=== PATIENT | female | born 1940 | race Caucasian/White ===

== ENCOUNTER 2021-05-18 11:59 | Day surgery (SDC) | payer MEDICARE ==
[2021-05-15 15:56] LABS: BASOPHILS % (AUTO) 0.4 % (0-1); EOSINOPHILS # (AUTO) 0.1 X10'3 (0-0.9); EOSINOPHILS % (AUTO) 0.9 % (0-6); LYMPHOCYTES # (AUTO) 1.8 X10'3 (1.1-4.8); LYMPHOCYTES % (AUTO) 14.3 % (21-51); MEAN CORPUSCULAR HEMOGLOBIN 28.4 PG (27.0-31.0); MEAN CORPUSCULAR HGB CONC 33.1 g/dL (33.0-36.5); MEAN CORPUSCULAR VOLUME 85.7 FL (78-98); MONOCYTES # (AUTO) 0.9 X10'3 (0-0.9); MONOCYTES % (AUTO) 7.2 % (2-12); NEUTROPHILS # (AUTO) 9.8 X10'3 (1.8-7.7); NEUTROPHILS % (AUTO) 77.2 % (42-75); PRE OP HEMOGLOBIN 14.6 g/dL (12.0-16.0); PRE OP PLATELET COUNT 163 X10'3 (140-440); RED BLOOD COUNT 5.13 X10'6 (4.20-5.60); RED CELL DISTRIBUTION WIDTH 14.2 % (11.5-14.5)
[2021-05-15 16:19] LABS: ALBUMIN 3.1 G/DL (3.4-5.0); ALBUMIN/GLOBULIN RATIO 0.7 (1.1-1.5); ALKALINE PHOSPHATASE 72 IU/L (46-116); BLOOD UREA NITROGEN 22 MG/DL (7-18); BUN/CREATININE RATIO 18.6 (6.6-38.0); CALCIUM 9.1 MG/DL (8.5-10.1); CHLORIDE 106 MMOL/L (99-107); CREATININE 1.18 MG/DL (0.40-0.90); PRE OP ALT 19 U/L (30-65); PRE OP ANION GAP 10 (8-16); PRE OP AST 16 U/L (10-37); PRE OP BILIRUB, TOTAL 0.7 MG/DL (0.0-1.0); PRE OP GLUCOSE 111 MG/DL (70-104); PRE OP POTASSIUM 4.3 MMOL/L (3.4-5.1); PRE OP SODIUM 136 MMOL/L (135-145); TOTAL CARBON DIOXIDE 19.9 MMOL/L (24-32); TOTAL PROTEIN 7.4 G/DL (6.4-8.2); eGFR 44 ML/MIN
[~2021-05-18] VITALS: Ht 157.5 cm; Wt 104.9 kg
[2021-05-18] VITALS (10 sets, daily range): BP systolic 121–140; BP diastolic 66–76
[~2021-05-18 11:59] MED LIST: APIX5TAB3 PO; ASCO500C17 PO; CINN500C16 PO; CRAN500T3 PO; CYAN50003 PO; D-MA1POW PO; DOCUMENT DATE & TIME OF BETA-BLOCKER PO ONE; FURO40TA4 PO; GLUC-95 PO; LOSA50TA64 PO; METO50TA16 PO; RESV1TAB2 PO; SPIR25TA5 PO; [UNRECOGNIZED DRUG - CODE] PO; famotidine 20mg tablet PO ONE; ringers solution, lacted 1,000 ML IV SCH
[2021-05-18] MEDS ORDERED: morphine 2 MG/ML inj. syringe IV PRN (14:30)
[2021-05-18] MEDS ORDERED: meperidine/PF 25mg/ml syringe IV PRN ×3 (14:30)
[2021-05-18] MEDS ORDERED: proCHLORperazine 10 MG/2 ml inj IV PRN (14:30)
[2021-05-18] MEDS ORDERED: ringers solution, lacted 1,000 ML IV SCH (14:30)
[2021-05-18] MEDS ORDERED: morphine 4 MG/ML inj SYRINge IV PRN (14:30)
[2021-05-18] MEDS ORDERED: ondansetron/PF 4mg/2ml inj IV PRN (14:30)
[2021-05-18] MEDS ORDERED: desflurane 240ml liquid inh. IH ONE (15:07)
[2021-05-18] MEDS ORDERED: propofol 10mg/ml 20ml vial IV ONE (15:07)
[2021-05-18] MEDS ORDERED: fentaNYL/PF 50MCG/1 ML 2ML syringe ONE (15:15)
[2021-05-18] MEDS ORDERED: midazolam 1 mg/ML 2ml injection ONE (15:16)
[2021-05-18] MEDS ORDERED: LIDOcaine 1% W/epiNEPHrine 1:100,000 20ml vial ONE (15:52)
--- NOTE | 2021-05-18 16:15 | NUR ---
Received from OR via [facility] IN STABLE CONDITION , accompanied by Anesthesiologist and UTILITY SYSTEM REPAIRER report given by UTILITY SYSTEM REPAIRER AND Anesthesiolgist. Addendum: 05/18/21 at 1653 by Mabel Ricci RN Amended: Links added.
[2021-05-18] MEDS ORDERED: traMADol 50MG tablet PO ONE (16:20)
--- NOTE | 2021-05-18 17:45 | NUR ---
PATIENT DISCHARGED FROM PACU IN STABLE CONDITION AFTER WRITTEN AND VERBAL DISCHARGE INSTRUCTIONS GIVEN. PATIENT GAVE VERBAL UNDERSTANDING OF INSTRUCTIONS GIVEN. PATIENT LEFT FACILITY VIA WHEELCHAIR WITH RN. Addendum: 05/18/21 at 1753 by Mabel Ricci RN Amended: Links added.
== END 2021-05-18 17:45 | disposition home or self-care (01) ==
LOC: PAS 11:59
PROVIDERS: ATTEND Obstetrics & Gynecology
DX: N95.0 Postmenopausal bleeding (principal); N88.8 Other specified noninflammatory disorders of cervix uteri; N84.0 Polyp of corpus uteri; K64.4 Residual hemorrhoidal skin tags; Z79.899 Other long term (current) drug therapy
CPT/HCPCS: 36415; 46999; 58558; 80053; 82948; 85025; 86885; 86900; 86901; J2250; J2704; J3010; J7030; 88304; 88305; A4355; A4618; A6258; J7120